=== PATIENT | female | born 1960 | race Caucasian/White ===

== ENCOUNTER 2020-05-05 12:01 | Emergency (ER) | payer OTHER, SELFPAY ==
[2020-05-05 12:09] VITALS: BP 160/80; PULSE 65; TEMP 36.2; O2SAT 99
--- NOTE | 2020-05-05 12:09 | ED.WOUNDLAC ---
HPI - Wound/Laceration General Chief Complaint: Wound/Laceration Stated Complaint: lt hand middle finger laceration/rt hand thumb lac Time Seen by Provider: 05/05/20 12:09 Source: patient and RN notes reviewed History of Present Illness HPI narrative: Patient is a 59-year-old female who presents the urgent care with complaints of a laceration to the left middle finger and right thumb. Patient states that she was doing dishes just prior to arrival and busted a crystal sponge yee in her hand. Patient denies of any pretreatment prior to arrival. Denies of any other injuries. No other acute complaints. No acute distress noted. Patient aware of the plan of care. Some parts of this dictation were generated by voice recognition software and may contain typographical and/or grammatical inaccuracies. Related Data Home Medications Medication Instructions Recorded Confirmed metformin 05/05/20 05/05/20 Allergies Allergy/AdvReac Type Severity Reaction Status Date / Time amoxicillin Allergy Unknown rash, Verified 05/05/20 12:18 facial swelling cetirizine Allergy Unknown agitation/n Verified 05/05/20 12:18 ervousness doxycycline Allergy Unknown Hives Verified 05/05/20 12:18 ezetimibe Allergy Unknown pain Verified 05/05/20 12:18 loratadine Allergy Unknown agitation Verified 05/05/20 12:18 Sulfa (Sulfonamide Allergy Unknown Skin Verified 05/05/20 12:18 Antibiotics) Reaction Review of Systems Review of Systems: Narrative: CONSTITUTIONAL: Denies fever, chills, or sweats. EYES: Denies visual changes, redness, or discharge. ENT: Denies rhinorrhea, congestion, sore throat, or otalgia. CARDIOVASCULAR: Denies chest pain, palpitations, or edema. RESPIRATORY: Denies cough or dyspnea. GASTROINTESTINAL: Denies abdominal pain, nausea, vomiting, or diarrhea. GENITOURINARY: Denies dysuria or hematuria. SKIN: Reports of a laceration to the left middle finger and right thumb MUSCULOSKELETAL: Denies back pain, joint pain, or myalgia. NEUROLOGIC: Denies headache, numbness, or weakness. All other systems reviewed are negative, except as documented in HPI. [facility] Past Medical History Medical History (Updated 05/05/20 @ 12:27 by RUTH Tinoco) Mixed hyperlipidemia Normal colonoscopy 2014 Prediabetes Family History Family History (Updated 06/16/17 @ 10:01 by DOCTOR UNKNOWN) Father Hypertension Family history of lung cancer Mother Hypertension Family history of elevated blood lipids Grandparent Carcinoma of colon Sibling Family history of malignant neoplasm of breast Social History Social History Smoking status: Never smoker Alcohol intake: current Comments At the time of my signature, I reviewed and agree with the nursing past medical, surgical, social, and family history. There is no relevant family history pertinent to the patient complaint. Exam Narrative: Exam Narrative: GENERAL: This is a well-nourished, well-developed patient, in no apparent distress. HEAD: normocephalic, atraumatic. EYES: PERRL. Sclera clear/white. Vision is grossly intact. EARS: External ears normal NOSE: External nose normal with no obvious nasal discharge, nares without redness, no rhinorrhea. THROAT: Mucous membranes moist NECK: Neck supple SKIN: 0.25 cm superficial laceration noted to the ulnar aspect of the right thumbnail, 0.25 cm superficial laceration noted to the radial aspect of the right thumbnail; 1 cm linear superficial laceration noted to the tuft of the left middle finger NEURO: awake, alert, and oriented to person, place and time. There were no obvious focal neurologic abnormalities. EXTREMITIES: No obvious erythema, edema or ecchymosis noted to bilateral hands. Positive strong bilateral radial pulses with capillary refill less than 2 seconds. Range of motion to all phalanges within normal limits. Course Vital Signs Vital signs: Vital Signs Temperature 97.2 F L 05/05/20 12:09 Pulse Rate
== END 2020-05-05 12:31 | disposition home or self-care (01) ==
PROVIDERS: Emergency Provider Nurse Practitioner Family; PCP Family Medicine
DX: S61.213A Laceration without foreign body of left middle finger without damage to nail, initial encounter (principal); S61.011A Laceration without foreign body of right thumb without damage to nail, initial encounter; W25.XXXA Contact with sharp glass, initial encounter; Y93.G1 Activity, food preparation and clean up; E78.2 Mixed hyperlipidemia; R73.03 Prediabetes
CPT/HCPCS: 12001; 99212; G0463

== ENCOUNTER → 2020-12-24 10:46 | Outpatient (CLI) | payer OTHER, SELFPAY ==
--- NOTE | ~2020-12-24 | XR_ITS ---
XR hip BI wo pelvis DATE: 12/24/2020 11:38 INDICATION: Right hip pain TECHNIQUE: AP and lateral views of each hip COMPARISON: None FINDINGS: There is irregularity and mild flattening of the right femoral head as well as some patchy sclerosis, consistent with avascular necrosis. No recent fracture or dislocation of either hip is evident. There is no evidence of avascular necrosi s of the left hip. The pubic symphysis and sacroiliac joints are intact. Degenerative disc disease at L5-S1 IMPRESSION: Avascular necrosis of the right femoral head Reviewed, dictated and finalized at location A.
--- NOTE | ~2020-12-24 | XR_ITS ---
XR lumbar spine 2-3V DATE: 12/24/2020 11:38 INDICATION: Right hip pain TECHNIQUE: AP, lateral, coned lateral lumbosacral views COMPARISON: None FINDINGS: There is diffuse osteopenia. No fracture or bone destruction. The included lower thoracic and lumbar pedicles are intact. There is moderate loss of interspace height and minimal spurring at L3-4. There is more prominent loss of interspace height at L5-S1. The sacroiliac joints are intact. IMPRESSION: Degenerative disc disease at L3-4 and to a greater extent L5-S1 Diffuse osteopenia Reviewed, dictated and finalized at location A.
== END ==
PROVIDERS: PCP Family Medicine
DX: M25.551 Pain in right hip (principal); M85.88 Other specified disorders of bone density and structure, other site; M51.36 Other intervertebral disc degeneration, lumbar region; M87.851 Other osteonecrosis, right femur
CPT/HCPCS: 72100; 73521

== ENCOUNTER → 2021-01-22 12:11 | Outpatient (CLI) | payer OTHER, SELFPAY ==
--- NOTE | ~2021-01-22 | MR_ITS ---
EXAMINATION: MR hip RT wo con DATE: 01/22/2021 14:58 INDICATION: Right hip pain. TECHNIQUE: Magnetic resonance imaging (MRI) of the right hip was performed without intravenous contra st. Sequences included axial and coronal PD-weighted FS FSE and axial T1-weighted FSE of the pelvis. Sequences of the hip included 2D FIESTA, T1-weighted fast GRE, and axial, coronal, and sagittal PD-we ighted FS FSE. COMPARISON: Pelvis and hip radiographs 12/24/2020 FINDINGS: Bones/cartilage: Bone alignment is normal. There is a large distribution of osteonecrosis of the femoral heads bilater ally. There is collapse of the articular surface of right femoral head. Right hip joint demonstrates small osteophytes and partial thickness cartilage loss. Labrum: There is a tear of right acetabular labrum. Fluid: There is a large right hip joint effusion. There is mild bilateral trochanteric bursitis. Soft tissues: There is moderate tendinopathy of the hamstring origins. The iliopsoas tendons are normal. The gluteu s minimus and gluteus medius tendons are normal. IMPRESSION: 1. Large distribution of osteonecrosis of right femoral head with collapse of the articular surface a nd mild right hip osteoarthritis. 2. Large right hip joint effusion. 3. Large distribution of osteonecrosis in left femoral head. Reviewed, dictated and finalized at location A. IMPRESSION: 1. Large distribution of osteonecrosis of right femoral head with collapse of t he articular surface and mild right hip osteoarthritis. 2. Large right hip joint effusion. 3. Large distribution of osteonecrosis in left femoral head.
== END ==
PROVIDERS: PCP Family Medicine; Visit Provider Orthopaedic Surgery
DX: M25.451 Effusion, right hip (principal); M87.850 Other osteonecrosis, pelvis
CPT/HCPCS: 73721

== ENCOUNTER 2021-05-20 01:16 | Day surgery (SDC) | payer OTHER, SELFPAY ==
[2021-05-07 14:28] VITALS: BMI 29.6
--- NOTE | 2021-05-19 15:10 | PM.HPGS ---
History of Present Illness History of Present Illness Consent: Risks, benefits, and alternatives have been discussed and questions answered. Patient agrees to proceed with procedure. Chief complaint: hx of colon polyps, neoplasm screening Narrative: Michelle Zhao is a 60 year old female referred for colon cancer screening. She had a polyp removed about Review of Systems Review of Systems: All systems reviewed & are unremarkable except as noted in HPI and below PMFSH Past Medical History Medical History Mixed hyperlipidemia Normal colonoscopy 2015 Prediabetes Family History Family History Father Hypertension Family history of lung cancer Mother Hypertension Family history of elevated blood lipids Grandparent Carcinoma of colon Sibling Family history of malignant neoplasm of breast Social History Social History Smoking status: Former smoker Second hand tobacco smoke exposure: No Alcohol intake: current Drinks per week: 6 Substance use: never Substance use type: does not use Living arrangements: with family Additional occupation/education comments: HM Gender identity (if verbalized by the patient): Female Spiritual care concerns: No Agree to blood products: Yes Meds Home Medications and Allergies Home Medications Medication Instructions Recorded Confirmed Type aspirin 81 mg tablet,delayed 81 mg PO DAILY 01/20/21 05/20/21 History release lisinopril 20 mg tablet 20 mg PO DAILY #90 tablet 01/20/21 05/20/21 Rx metoprolol succinate 100 mg See Rx Instructions .ROUTE 01/20/21 05/20/21 Rx tablet,extended release 24 hr .COMPLEX #90 tablet sitagliptin 100 mg-metformin ER 1 tablet PO DAILY #90 tablet 01/20/21 05/20/21 Rx 1,000 mg tablet,extended [id number] mp spironolactone 50 mg tablet See Rx Instructions .ROUTE 01/20/21 05/20/21 Rx .COMPLEX #90 tablet venlafaxine 75 mg capsule,extended See Rx Instructions .ROUTE 01/20/21 05/20/21 Rx release 24 hr .COMPLEX #90 cap atorvastatin 80 mg tablet 80 mg PO DAILY #90 tablet 02/11/21 05/20/21 Rx alprazolam 0.25 mg tablet 0.25 mg PO .qd PRN 90 Days #90 02/12/21 05/20/21 Rx tablet Allergies Allergy/AdvReac Type Severity Reaction Status Date / Time amoxicillin Allergy Unknown rash, Verified 05/20/21 06:53 facial swelling cetirizine Allergy Unknown agitation/n Verified 05/20/21 06:53 ervousness doxycycline Allergy Unknown Hives Verified 05/20/21 06:53 ezetimibe Allergy Unknown pain Verified 05/20/21 06:53 loratadine Allergy Unknown agitation Verified 05/20/21 06:53 Sulfa (Sulfonamide Allergy Unknown Skin Verified 05/20/21 06:53 Antibiotics) Reaction Exam Resp: Auscultation: clear to auscultation bilaterally Cardio: Rate: regular rate Rhythm: regular rhythm GI: GI Palp: Yes Soft to palpation and No Tenderness to palpation present (GI) Assessment and Plan Assessment and plan (1) Colon cancer screening: Code(s): Z12.11 - Encounter for screening for malignant neoplasm of colon Status: Acute Assessment and Plan: Colonoscopy with possible biopsy or polypectomy or cautery or injection of substances.
[2021-05-20 06:53] LABS: Glucose Point of Care 104 mg/dl (65-105)
[2021-05-20 06:56] VITALS: BP 158/92; PULSE 90; RESP 17; TEMP 36.6; O2SAT 98
[2021-05-20] MEDS: LACTATED RINGERS 1,000 ML 150 ML IV CONT (07:08)
--- NOTE | 2021-05-20 07:44 | WPDANESEPPF ---
Anes - Initial Pre Proc Eval Procedure: Operation Date: 05/20/21 08:00 Proposed Procedures p Screening Colonoscopy - Pratik Hannah MD Date/Time: 05/20/21 07:44 Surgeon: Pratik Hannah MD Pre Op Diagnosis: hx of colon polyps, neoplasm screening Patient Data Age: 60 Gender: F Height: 1.73 m Weight: 89.7 kg Last Vital Signs Temp 98 F 05/20/21 06:56 Pulse 90 05/20/21 06:56 Resp 17 05/20/21 06:56 BP 158/92 H 05/20/21 06:56 Pulse Ox 98 05/20/21 06:56 Allergies Allergy/AdvReac Type Severity Reaction Status Date / Time amoxicillin Allergy Unknown rash, Verified 05/20/21 06:53 facial swelling cetirizine Allergy Unknown agitation/n Verified 05/20/21 06:53 ervousness doxycycline Allergy Unknown Hives Verified 05/20/21 06:53 ezetimibe Allergy Unknown pain Verified 05/20/21 06:53 loratadine Allergy Unknown agitation Verified 05/20/21 06:53 Sulfa (Sulfonamide Allergy Unknown Skin Verified 05/20/21 06:53 Antibiotics) Reaction Home Medications Medication Instructions Recorded Confirmed Type aspirin 81 mg tablet,delayed 81 mg PO DAILY 01/20/21 05/20/21 History release lisinopril 20 mg tablet 20 mg PO DAILY #90 tablet 01/20/21 05/20/21 Rx metoprolol succinate 100 mg See Rx Instructions .ROUTE 01/20/21 05/20/21 Rx tablet,extended release 24 hr .COMPLEX #90 tablet sitagliptin 100 mg-metformin ER 1 tablet PO DAILY #90 tablet 01/20/21 05/20/21 Rx 1,000 mg tablet,extended [id number] mp spironolactone 50 mg tablet See Rx Instructions .ROUTE 01/20/21 05/20/21 Rx .COMPLEX #90 tablet venlafaxine 75 mg capsule,extended See Rx Instructions .ROUTE 01/20/21 05/20/21 Rx release 24 hr .COMPLEX #90 cap atorvastatin 80 mg tablet 80 mg PO DAILY #90 tablet 02/11/21 05/20/21 Rx alprazolam 0.25 mg tablet 0.25 mg PO .qd PRN 90 Days #90 02/12/21 05/20/21 Rx tablet Laboratory Tests 05/20/21 06:50 POC Capillary Glucose 104 mg/dl mg/dl (65-105) Patient hx anesthesia problems: none Family hx anesthesia problems: none Results Review: All pre-operative results and documents have been reviewed as part of the pre-operative evaluation. [facility] Past Medical History Medical History Mixed hyperlipidemia Normal colonoscopy 2014 Prediabetes Family History Family History Father Hypertension Family history of lung cancer Mother Hypertension Family history of elevated blood lipids Grandparent Carcinoma of colon Sibling Family history of malignant neoplasm of breast Social History Social History Smoking status: Former smoker Second hand tobacco smoke exposure: No Alcohol intake: current Drinks per week: 6 Substance use: never Substance use type: does not use Living arrangements: with family Additional occupation/education comments: HM Gender identity (if verbalized by the patient): Female Spiritual care concerns: No Agree to blood products: Yes Anes - Eval Final PreProcedure Day of Procedure 05/20/21 07:44 Patient weight: overweight Heart: regular rate and rhythm Lungs: clear to auscultation Airway: Mallampati scale class II Neurological: alert and oriented Last oral intake: >/= 8 hours ASA classification: II Emergent: no Anesthetic plan: proceed Anesthesia type and monitoring: general GIVS and standard monitoring Results Review: All pre-operative results and documents have been reviewed as part of the pre-operative evaluation. Informed Consent: The patient's anesthetic plan and its attendant risks and benefits were discussed with the patient/family/POA. Questions were solicited and answers provided to the satisfaction of the patient/family/POA.
[2021-05-20 08:20] VITALS: BP 124/72; PULSE 78; RESP 19; O2SAT 100
[2021-05-20 08:30] VITALS: BP 144/89; PULSE 71; RESP 19; O2SAT 99
[2021-05-20 08:40] VITALS: BP 134/89; PULSE 72; RESP 15; O2SAT 100
== END 2021-05-20 08:45 | disposition home or self-care (01) ==
PROVIDERS: PCP Family Medicine; Visit Provider Internal Medicine Gastroenterology
PROC: 0DJD8ZZ Inspection of Lower Intestinal Tract, Via Natural or Artificial Opening Endoscopic (ICD-10-PCS; CPT 45378; principal; 2021-05-20 08:00)
DX: Z12.11 Encounter for screening for malignant neoplasm of colon (principal); D12.8 Benign neoplasm of rectum; D12.3 Benign neoplasm of transverse colon; D12.2 Benign neoplasm of ascending colon; K57.30 Diverticulosis of large intestine without perforation or abscess without bleeding; E78.2 Mixed hyperlipidemia; R73.03 Prediabetes; Z79.82 Long term (current) use of aspirin; Z79.84 Long term (current) use of oral hypoglycemic drugs; Z87.891 Personal history of nicotine dependence
CPT/HCPCS: 45385; 82948; 88305; J2704; J3370; J7120

== ENCOUNTER 2024-11-02 07:15 | Outpatient (CLI) | payer MEDICARE, OTHER, SELFPAY ==
--- NOTE | ~2024-11-02 | US_ITS ---
US abdomen limited INDICATION: Cirrhosis. PROCEDURE: Realtime right upper abdominal ultrasound. COMPARISON: No prior studies for comparison. FINDINGS: The pancreas is normal without focal mass or pancreatic ductal dilation. Liver echotexture is increased and heterogeneous with nodular liver surface, compatible with cirrhosis. There is norm al directional flow in the portal vein. The gallbladder is normal without stones, gallbladder wall thickening or pericholecystic fluid. Comm on bile duct measures 4 mm. No sonographic Mancuso's sign. IMPRESSION: 1: Cirrhosis of the liver. Reviewed, dictated and finalized at location B. IMPRESSION: 1: Cirrhosis of the liver.
--- OUTSIDE RECORDS SUMMARY | 2024-11-02 07:19 | XMS_ITS | Patient Health Record ---
Author Organization Inc. Kevin Address [address] [place] [address] [address] [place], [place] [id number] Care Team Providers Care Process Server Name Role Phone SCOTT SANTOS MD Primary Care Provider Unav ailable Dipika Perez Unavailable [phone] Allergies Allergen (clinical drug ingredient) Drug/Non Drug Allergy documented on EMR Reaction Allergy Type Onset Date Status sulfamethoxazole / trimethoprim Bactrim Unknown Drug Allergy Active Results Component Value Reference Range Notes HEPATITIS C AB W/REFL TO HCV RNA, QN, PCR Reviewed date:02/13/2024 12:35:33 PM Interpretation:03/04 hep and tb screen Negative Performing Lab:[place], [facility]-[id number] Salima Peres, [id number] Kiki Brantley MD Notes/Report: FASTING:NO FASTING: NO HEPATITIS C ANTIBODY NON-REACTIVE NON-REACTIVE HCV antibody was non-reactive. There is no laboratory evidence of HCV infection. In most cases, no further action is required. However, if recent HCV exposure is suspected, a test for HCV RNA (test code 20418) is suggested. For additional information please refer to http://education.RemCare.com/faq/ZKW18d3 (This link is being provided for informational/ educational purposes only.) HEPATITIS B SURFACE AG,QN BEATRICE ZHAO (NOT FOR DIAG) Reviewed date:02/13/2024 12:35:33 PM Interpretation: Negative Performing Lab:[place], [facility] [place],[address] [facility] [id number] Yolanda Perez MD,PhD,SABINO Notes/Report: FASTING:NO FASTING: NO HEPATITIS B SURFACE AG,QN MONITOR (NOT FOR DIAG) <0.05 REFERENCE RANGE: <0.05 IU/mL The HBsAg Quantitative test should not be used to diagnose HBV infection. For HBV diagnosis, test code 498(X) Hepatitis B Surface Antigen with Reflex Confirmation and test code 501(X) Hepatitis B Core Antibody, Total are recommended. Quantitative HBsAg should be used to confirm ongoing hepatitis B virus (HBV) replication, evaluate prognosis in selected patients, and monitor response to antiviral treatment. For additional information, please refer to http://Threat Stack.Spinelab/faq/APY013 (This link is being provided for informational/ educational purposes only.) QUANTIFERON(R)-TB GOLD PLUS, 1 TUBE Reviewed date:02/13/2024 12:35:33 PM Interpretation: Negative Performing Lab:[place], [id number] Salima Louie, [id number] Kiki Brantley MD Notes/Report: FASTING:NO FASTING: NO QUANTIFERON(R)-TB GOLD PLUS, 1 TUBE NEGATIVE NEGATIVE Negative test result. M. tuberculosis complex infection unlikely. NIL 0.15 MITOGEN-NIL 7.79 TB1-NIL 0.05 TB2-NIL 0.09 The Nil tube value reflects the background interferon gamma immune response of the patient's blood sample. This value has been subtracted from the patient's displayed TB and Mitogen results. Lower than expected results with the Mitogen tube prevent false-negative Quantiferon readings by detecting a patient with a potential immune suppressive condition and/or suboptimal pre-analytical specimen handling. The TB1 Antigen tube is coated with the M. tuberculosis-specific antigens designed to elicit responses from TB antigen primed CD4+ helper T-lymphocytes. The TB2 Antigen tube is coated with the M. tuberculosis-specific antigens designed to elicit responses from TB antigen primed CD4+ helper and CD8+ cytotoxic T-lymphocytes. For additional information, please refer to https://education.Self-A-r-T/faq/KSY750 (This link is being provided for informational/ educational purposes only.) Reason For Referral No Information Medications Medication SIG (Take, Route, Frequency, Duration) Notes Start Date End Date Status Hydrocortisone 2.5 % 1 application Externally Twice a day for 30 days 05/25/2021 Not-Taking Triamcinolone Acetonide 0.1 % 1 application to trunk/ext Externally Twice a day for 30 days 10/20/2021 Not-Ceci ng Ldyrvinniei Pen 150 MG/ML as directed Subcutaneous inj 150mg q 12 weeks for 90 days 12/07/2021 Not-Takin g Taltz 80 MG/ML as directed Subcutaneous inj 80mg q 4 weeks for 30 days pt has new ins will fax Active Taltz 80 MG/ML as directed Subcutaneous inj 80 mg q 4 weeks for 30 days 04/19/2024 Active Venlafaxine HCl ER 75 MG (Prior Auth: Rx Ref#:[id number]) Oral for 90 Active Cimzia (2 Syringe) 200 MG/ML INJECT THE CONTENTS OF 2 SYRINGES (400 MG) UNDER THE SKIN EVERY OTHER WEEK DIRECTED Not-Nicki g Immunizations Vaccine Route Administration Date Status Comme nts Influenza, unspecified formu lation (CPT 63521 Inactive) Unknown 03/18/2020 Administered Influenza, unspecified formu lation (CPT 16225 Inactive) Unknown 01/14/2021 Administered Influenza, unspecified formu lation (CPT 65954 Inactive) Unknown 06/15/2017 Refused Pneumococcal polysaccharide PPV23 Unknown 06/15/2017 Re fused Pneumococcal polysaccharide PPV23 Unknown 04/29/2021 Re fused Influenza, unspecified formu lation (CPT 10251 Inactive) Unknown 05/10/2022 Refused Pneumococcal polysaccharide PPV23 Unknown 05/10/2022 Re fused Influenza, unspecified formu lation (CPT 33768 Inactive) Unknown 05/19/2023 Refused Pneumococcal polysaccharide PPV23 Unknown 05/19/2023 Re fused Influenza, unspecified formu lation (CPT 15417 Inactive) Unknown 04/19/2024 Refused Social History Tobacco Use: Social History Observation Description Date Details (start date - stop date) Never Smoker NA - NA Tobacco Use/Smoking Question Answer Notes Are you a nonsmoker Problems Problem Type SNOMED Code ICD Code Onset Dates Problem Status W/U Status Risk Notes Problem Prurigo nodularis (25678914) Prurigo nodularis (L28.1) Active confirmed My hope is that the patient's prurigo nodules will clear once the patient psoriasis is again under control with Toltz Problem Psoriasis vulgaris (558570605) Psoriasis vulgaris (L40.0) Active confirmed Patient beginning to improve on Toltz, will continue. Problem Actinic keratosis () Actinic keratosis (L57.0) Active confirmed Lesions were treated with cryotherapy for 15 seconds a piece today in my office as per procedure note.. Patient was warned of the side effects including large blisters, pain, scarring, secondary infection and recurrence. Patient was instructed to bathe normally and treat with topical antibiotics and a bandage once the blisters unroof and the sites are healed. Written instructions were given. Problem 585105738 Other long term care pharmacist (current) drug therapy (Z79.899) Active confirmed Problem Multiple benign melanocytic nevi (124415225) Multiple nevi (D22.9) Active confirmed Benign appearin g nevi were noted on head, neck, trunk or extremities. Patient education was provided including the ABCDs of melanoma and identification of nonmelanoma skin cancers as well as the importance of sun protection and sunscreen application Encounters Encounter Location Date Provider Diagnosis [facility] Karina Forrest [address] [id number] 01/25/2024 Dipika Perez Psoriasis vulgaris L40.0 ; skilled nursing use of drug Z79.899 and Prurigo nodularis L28.1 [facility] Karina Forrest [address] [id number] 04/19/2024 Dipika Perez Psoriasis vulgaris L40.0 and Multiple nevi D22.9 [facility] [address] [id number] 02/13/2024 Inc. Leann [address] [id number] 05/07/2024 Dipika Perez Psoriasis vulgaris L40.0 [facility] [address] [id number] 10/09/2024 Dipika Perez Psoriasis vulgaris L40.0 [facility] [address] [id number] 02/08/2024 Inc. Criss [address] [id number] 02/14/2024 SCOTT Perez, Inc. [address] [place] [id number] 02/14/2024 SCOTT Perez, Inc. [address] [place] [id number] 02/23/2024 SCOTT Perez, Inc. [address] Karina Forrest [address] [place] [address] [id number] 02/24/2024 SCOTT Perez, Inc. [address] [place] [address] [id number] 02/24/2024 Dipika Perez, Inc. [address] Karina Forrest [address] [place] [address] [id number] 02/27/2024 SCOTT Perez, Inc. [address] Karina Forrest [address] [place] [address] [id number] 03/11/2024 SCOTT Perez, Inc. [address] [place] [address] [id number] 03/27/2024 SCOTT Perez, Inc. [address] [place] [address] [id number] 03/28/2024 SCOTT Perez, Inc. [address] [place] [address] [id number] 03/29/2024 SCOTT Perez, Inc. [address] [place] [address] [id number] 04/30/2024 SCOTT Perez, Inc. [address] [place] [address] [id number] 05/05/2024 SCOTT Perez, Inc. [address] [place] [id number] 05/07/2024 SCOTT SANTOS Psoriasis vulgaris L40.0 Dipika Perez, Inc. [address] [place] [address] [id number] 05/10/2024 SCOTT Perez, Inc. [address] [place] [id number] 05/22/2024 SCOTT Perez, Inc. [address] [address] [place], [place] [id number] 08/15/2024 Inc. Criss [address] Kar[address] [place], [place] [id number] 08/31/2024 Inc. Criss [address] [address]ina [address] [place], [place] [phone] 10/09/2024 SCOTT SANTOS Assessments Encounter Date Diagnosis (ICD Code) Assessment Notes Treatment Notes Treatment Clinical Notes Section Notes 01/25/2024 Psoriasis vulgaris (ICD-10 - L40.0) Patient will repeat hepatitis and TB screen and switch back to Tolt on which her skin was previously clear. 01/25/2024 long term care pharmacist use of drug (ICD-10 - Z79.899) 04/19/2024 Psoriasis vulgaris (ICD-10 - L40.0) Patient beginning to improve on Toltz, will continue. 04/19/2024 Multiple nevi (ICD-10 - D22.9) Benign appearing nevi were noted on head, neck, trunk or extremities. Patient education was provided including the ABCDs of melanoma and identification of nonmelanoma skin cancers as well as the importance of sun protection and sunscreen application 05/07/2024 Psoriasis vulgaris (ICD-10 - L40.0) Patient beginning to improve on Toltz, will continue. 10/09/2024 Psoriasis vulgaris (ICD-10 - L40.0) Patient beginning to improve on Toltz, will continue. 05/07/2024 Psoriasis vulgaris (ICD-10 - L40.0) Patient beginning to improve on Toltz, will continue. 01/25/2024 Prurigo nodularis (ICD-10 - L28.1) My hope is that the patient's prurigo nodules will clear once the patient psoriasis is again under control with Toltz 01/25/2024 Other Learning About Sun Damage and Your Skin material was published 04/19/2024 Other Learning About Sun Damage and Your Skin material was published Plan Of Treatment Pending Test Test Name Order Date Hepatitis BsAg 04/09/2019 Hepatitis BsAg 04/29/2021 Hepatitis BsAg 06/15/2017 Hepatitis BsAg 01/25/2024 Hepatitis BsAg 04/24/2020 Hepatitis BsAg 05/19/2023 Hepatitis BsAg 05/10/2022 Hepatitis BsAg 11/17/2022 Hepatitis BsAg 10/20/2021 Hepatitis BsAg 11/08/2018 Hepatitis C antibody 04/29/2021 Hepatitis C antibody 06/15/2017 Hepatitis C antibody 01/25/2024 Hepatitis C antibody 04/24/2020 Hepatitis C antibody 05/19/2023 Hepatitis C antibody 05/10/2022 Hepatitis C antibody 11/17/2022 Hepatitis C antibody 10/20/2021 Hepatitis C antibody 11/08/2018 Hepatitis C antibody 04/09/2019 Quantiferon gold 01/25/2024 Quantiferon gold 04/24/2020 Quantiferon gold 05/19/2023 Quantiferon gold 05/10/2022 Quantiferon gold 11/17/2022 Quantiferon gold 10/20/2021 Quantiferon gold 04/09/2019 Quantiferon gold 04/29/2021 Quantiferon gold 06/15/2017 QUANTIFERON(R)-TB GOLD 11/08/2018 Skin, Shave Biopsy 05/10/2022 Insurance Providers Payer Name Payer Address Payer Phone Subscriber Number Group Number Insured Name Patient Relationship to Insured Coverage Start Date Coverage End Date [facility] [address] [place] [address] [id number] MARTIN WILCOX Self - patient is the insured Medical (General) History Medical History History ICD Code High Cholesterol
--- OUTSIDE RECORDS SUMMARY | 2024-11-02 07:20 | XMS_ITS | Referral Summary ---
Author Organization [facility] Address [address] [place] [id number] Care Team Providers Care Air Brush Artist Name Role Phone France Allan MD Primary Care Provider + Encounters Date Type Department Care Team Description 09/12/2024 Telephone [facility] ([facility]) [address] [place] [id number] Linda Partida RN Test Results (Right breast biopsy 09/11/24) 09/11/2024 2:05 PM CDT - 09/11/2024 11:59 PM CDT Hospital Encounter [facility] ([facility]) [address] [place] [id number] Abnormal mammogram Discharge Disposition: Discharge to home or self care 09/11/2024 12:47 PM CDT - 09/11/2024 11:59 PM CDT Hospital Encounter [facility] ([facility]) [address] [place] [id number] Abnormal mammogram Discharge Disposition: Discharge to home or self care 08/27/2024 7:46 AM CDT - 08/27/2024 11:59 PM CDT Hospital Encounter [facility] ([facility]) [address] [place] [id number] Abnormal mammogram Discharge Disposition: Discharge to home or self care 08/22/[address] [phone] Referral, Self Appointment Request 08/20/2024 1:19 PM CDT - 08/20/2024 11:59 PM CDT Hospital Encounter [facility] ([facility]) [address] [place] [address] Screening mammogram, encounter for Discharge Disposition: Discharge to home or self care from Last 3 Months Allergies Active Allergy Reactions Criticality Noted Date Comments Amoxicillin Unknown 02/15/2013 Sulfa (Sulfonamide Antibiotics) Rash Medium 07/2020 Medications ALPRAZolam (XANAX) 0.25 mg tablet Take 0.25 mg by mouth daily as needed 1 9 Active atorvastatin (LIPITOR) 40 mg tablet 9 Active busPIRone (BUSPAR) 5 mg tablet TAKE 1-3 TABLETS BY ORAL ROUTE UP TO 3 TIMES EVERY DAY 1 9 Active cholecalciferol (cholecalciferol) 400 unit capsule Take by mouth Active RESTASIS 0.05 % ophthalmic emulsion 9 Active TALTZ AUTOINJECTOR 80 mg/mL auto-injector 9 Active JENTADUETO XR 5-1,000 mg tablet, IR & ER, biphasic 24hr 9 Active lisinopril (PRINIVIL,ZESTRIL ) 10 mg tablet 9 Active LOTEMAX 0.5 % drops,gel INSTILL 1 DROP(S) IN EACH EYE BY OPHTHALMIC ROUTE 2 TIME(S) PER DAY 3 9 Active metFORMIN (GLUCOPHAGE) 850 mg tablet Take by mouth Active TOPROL XL 100 mg 24 hr tablet 9 Active nuiezdsi-cbo-jmtd ous fumarate (MULTI VITAMIN) 9 mg iron/15 mL liquid Take by mouth Active spironolactone (ALDACTONE) 50 mg tablet 9 Active venlafaxine XR (EFFEXOR-XR) 75 mg 24 hr capsule TK ONE C PO QD WITH FOOD 0 9 Active Active Problems Problem Noted Date Diagnosed Date Menopause present 01/16/2015 Social History Tobacco Use Types Packs/Day Years Used Date Smoking Tobacco: Never Assessed Personal Safety Answer Date Recorded Have you ever been in or are you currently in a harmful physical or emotional relationship or is someone making you feel afraid or unsafe? 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 Gender Identity Not on file Sexual Orientation Not on file Last Filed Vital Signs Vital Sign Reading Time Taken Comments Blood Pressure 112/64 08/02/2024 3:00 PM CDT Pulse 54 08/02/2024 3:00 PM CDT Temperature 36.3 C (97.4 F) 08/02/2024 11:44 AM CDT Respiratory Rate 14 08/02/2024 3:00 PM CDT Oxygen Saturation 96% 08/02/2024 3:00 PM CDT Inhaled Oxygen Concentration - - Weight 93 kg (205 lb) 08/02/2024 11:44 AM CDT Height 172.7 cm (5' 8) 08/02/2024 11:44 AM CDT Body Mass Index 31.17 08/02/2024 11:44 AM CDT Plan of Treatment Not on file Medical Devices Implanted Type Area Senior Clinical Research Scientist Device Identifier Shelf Expiration Date Model / Serial / Lot [employer] Marker Biospy Site Mini Cork Shape Deployment Device Titanium [employer]ur[employer] Eviva 13cm [id number]-[id number] - [id number] Implanted:Qty: 1 on 09/11/2024 at [facility] [employer] [id number] 03/21/2025 CommuniCliqueIV A-13 / / [id number] Procedures Procedure Name Priority Date/Time Associated Diagnosis Comments LEVAR POST CLIP PLACEMENT RIGHT Schedule Routine, Read Routine (OP Routine) 09/11/2024 2:24 PM CDT Abnormal mammogram STEREOTACTIC BREAST BIOPSY RIGHT Schedule Routine, Read Routine (OP Routine) 09/11/2024 2:05 PM CDT Abnormal mammogram SURGICAL PATHOLOGY Routine 09/11/2024 2: 04 PM CDT Abnormal mammogram DIAGNOSTIC MAMMOGRAM BILATERAL W LEVAR Schedule Routine, Read Routine (OP Routine) 08/27/2024 8:43 AM CDT Abnormal mammogram SCREENING MAMMOGRAM BILATERAL W LEVAR Schedule Routine, Read Routine (OP Routine) 08/20/2024 1:27 PM CDT Screening mammogram, encounter for from Last 3 Months Results * Levar Post Clip Placement Right (09/11/2024 2:24 PM CDT) Anatomical Region Laterality Modality Breast Right Mammography 09/11/2024 2:25 PM CDT Addenda Addendum by Thee Leal MD on 09/12/2024 2:13 PM CDT ADDENDUM: Pathology from biopsy of the Right breast showed: Breast, right, lower central, core biopsy - Calcifications associated with fibrocystic changes and benign lobules - No evidence of atypia or malignancy Please refer to pathology report for details. Pathology is benign and concordant. Normal interval screening mammography is recommended. Radiology-pathology concordance was reviewed with Dr. Krystyna Painting. Results and recommendations will be discussed with the patient by [facility] or referring provider staff and will be separately documented in the medical record. Electronically signed by: Thee Leal M.D. Impressions 09/11/2024 4:55 PM CDT 1. Successful vacuum-assisted core needle biopsy of the RIGHT breast. Pathology is pending. 2. The Cork tissue marker is displaced approximately 2 cm inferior to the expected location on post biopsy mammogram. ASSESSMENT: Post Procedure Mammograms for Marker Placement The radiology attending physician has personally reviewed this study, and had reviewed and/or edited this written report and agrees with it. Electronically signed by: Thee Leal M.D. Narrative 09/11/2024 4:55 PM CDT EXAMINATION: RIGHT STEREOTACTIC BREAST VACUUM-ASSISTED CORE BIOPSY UTILIZING TOMOSYNTHESIS AND STEREOTACTIC GUIDANCE, PLACEMENT OF A BIOPSY SITE TISSUE MARKER CLIP, AND RIGHT FULL FIELD DIGITAL MAMMOGRAM WITH DIGITAL BREAST TOMOSYNTHESIS HISTORY: Abnormal mammogram. 63-year-old woman with screening-detected grouped amorphous calcification in the lower central RIGHT breast. Image guided core needle biopsy is requested to evaluate for malignancy. COMPARISON: Prior mammograms which date back to 03/11/2016, the most recent on 08/27/2024. BREAST PARENCHYMAL COMPOSITION: There are scattered areas of fibroglandular density. PROCEDURE AND FINDINGS: The risks and potential benefits of the procedures were discussed with the patient and written informed consent was obtained. After a time-out procedure, the patient was placed in the prone position on the biopsy unit. The area of interest was localized and targeted utilizing digital imaging with tomosynthesis and stereotaxis. After sterile preparation of the skin, 1% lidocaine and 2% lidocaine with epinephrine were utilized for local anesthesia. A small skin incision was made with a #11 scalpel blade and a 9 gauge Brevera vacuum-assisted biopsy needle was advanced to the area of interest from an inferior approach utilizing stereotactic guidance. A total of 6 tissue cores were then obtained; these were submitted to surgical pathology in formalin for histologic analysis. The specimen radiograph demonstrates that the calcifications of interest are included within the tissue cores. A SecurMark Mini Cork tissue marker clip was placed at the biopsy site. The needle was removed, hemostasis was achieved, and Dermabond was applied. There was no evidence of significant immediate complication. The patient was given verbal as well as written post procedural instructions prior to release from the department. A two-view RIGHT digital mammogram with digital breast tomosynthesis post procedure demonstrates that the tissue marker clip is displaced approximately 2 cm inferior to the expected location. The attending radiologist, Dr. Thee Leal M.D., was present throughout the entire procedure. Dr. Vinod Krueger (diagnostic vice president marketing & development) also participated in this examination. us France Allan MD IMG MAMMO PROCEDURES Dameon julio cesar Result - Final * Stereotactic Breast Biopsy Right (09/11/2024 2:05 PM CDT) Anatomical Region Laterality Modality Breast Right Mammography 09/11/2024 2:15 PM CDT Addenda Addendum by Thee Leal MD on 09/12/2024 2:13 PM CDT ADDENDUM: Pathology from biopsy of the Right breast showed: Breast, right, lower central, core biopsy - Calcifications associated with fibrocystic changes and benign lobules - No evidence of atypia or malignancy Please refer to pathology report for details. Pathology is benign and concordant. Normal interval screening mammography is recommended. Radiology-pathology concordance was reviewed with Dr. Krystyna Painting. Results and recommendations will be discussed with the patient by [facility] or referring provider staff and will be separately documented in the medical record. Electronically signed by: Thee Leal M.D. Impressions 09/11/2024 4:55 PM CDT 1. Successful vacuum-assisted core needle biopsy of the RIGHT breast. Pathology is pending. 2. The Cork tissue marker is displaced approximately 2 cm inferior to the expected location on post biopsy mammogram. ASSESSMENT: Post Procedure Mammograms for Marker Placement The radiology attending physician has personally reviewed this study, and had reviewed and/or edited this written report and agrees with it. Electronically signed by: Thee Leal M.D. Narrative 09/11/2024 4:55 PM CDT EXAMINATION: RIGHT STEREOTACTIC BREAST VACUUM-ASSISTED CORE BIOPSY UTILIZING TOMOSYNTHESIS AND STEREOTACTIC GUIDANCE, PLACEMENT OF A BIOPSY SITE TISSUE MARKER CLIP, AND RIGHT FULL FIELD DIGITAL MAMMOGRAM WITH DIGITAL BREAST TOMOSYNTHESIS HISTORY: Abnormal mammogram. 63-year-old woman with screening-detected grouped amorphous calcification in the lower central RIGHT breast. Image guided core needle biopsy is requested to evaluate for malignancy. COMPARISON: Prior mammograms which date back to 03/11/2016, the most recent on 08/27/2024. BREAST PARENCHYMAL COMPOSITION: There are scattered areas of fibroglandular density. PROCEDURE AND FINDINGS: The risks and potential benefits of the procedures were discussed with the patient and written informed consent was obtained. After a time-out procedure, the patient was placed in the prone position on the biopsy unit. The area of interest was localized and targeted utilizing digital imaging with tomosynthesis and stereotaxis. After sterile preparation of the skin, 1% lidocaine and 2% lidocaine with epinephrine were utilized for local anesthesia. A small skin incision was made with a #11 scalpel blade and a 9 gauge Brevera vacuum-assisted biopsy needle was advanced to the area of interest from an inferior approach utilizing stereotactic guidance. A total of 6 tissue cores were then obtained; these were submitted to surgical pathology in formalin for histologic analysis. The specimen radiograph demonstrates that the calcifications of interest are included within the tissue cores. A [employer] Mini Cork tissue marker clip was placed at the biopsy site. The needle was removed, hemostasis was achieved, and Dermabond was applied. There was no evidence of significant immediate complication. The patient was given verbal as well as written post procedural instructions prior to release from the department. A two-view RIGHT digital mammogram with digital breast tomosynthesis post procedure demonstrates that the tissue marker clip is displaced approximately 2 cm inferior to the expected location. The attending radiologist, Dr. Thee Leal M.D., was present throughout the entire procedure. Dr. Vinod Krueger (diagnostic vice president marketing & development) also participated in this examination. us France Allan MD IM MAMMO PROCEDURES Dameon julio cesar Result - Final * Surgical pathology (09/11/2024 2:04 PM CDT) Tissue (Breast biopsy, needle core) 09/11/2024 2:04 PM CDT Comment:RIGHT Stereo Guided Breast Biopsy - Lower Central - Calcs - CAT 4A Narrative PATHOLOGY [facility] - 09/12/2024 12:02 PM CDT EPIC results best viewed via link to PDF [facility] [place] [address] Note to Patients: This report may contain a detailed description of human tissue sent by a health care provider to the laboratory for pathologic evaluation. The content of this report is essential for diagnosis and may provide important critical findings. This information may be unfamiliar to patients to review without a medical professional present. It is advised that the patient review this report in the presence of a health care provider who can answer questions and explain the details. SURGICAL PATHOLOGY REPORT FINAL Patient Name: MICHELLE WILCOX Gender: F : 1960 (Age: 63) Address: [address] [place] [phone] Hospital #: [id number] Taken:09/11/2024 Received:09/11/2024 Reported: 09/12/2024 Patient Type: [facility] Ancillary Service: UNKNOWN Location: Physician(s): France Allan M.D. Diagnosis: Breast, right, lower central, core biopsy - Calcifications associated with fibrocystic changes and benign lobules - No evidence of atypia or malignancy gugo/09/12/2024 09:35 By this signature, I attest that the above diagnosis is based upon my personal examination of the slides(and/or other material indicated in the diagnosis). Nathalie Cedillo MD Report Electronically Reviewed and Signed Out By Nathalie Cedillo MD 09/12/2024 12:02:43 Luis Fernando Foote M.D. History: The patient is a 63-year-old woman presenting for abnormal mammogram. Operative procedure: Right breast biopsy, BI-RADS 4A. Specimen(s) Received: A: Right stereo guilded breast biopsy -lower central -calcs-cat 4a Gross Description: Received in formalin, labeled with the patient s identifiers and right stereo guided breast biopsy lower central calcs BI-RADS 4A are seven yellow and white, hemorrhagic cores of fibrofatty tissue (2.4-3.0 cm each in length by 0.3-0.4 cm in diameter). The cores designated on the jar lid are labeled A1 to A2 and the remaining cores are labeled A3 to A4. Jar 0. Placed in formalin immediately after collection. Total fixation time= 6.5 hours. sxst/09/11/2024 19:10 PA(s): Shanna Mullins By this signature, I attest that the above diagnosis is based upon my personal examination of the slides(and/or other material). Addenda/Procedures The performance characteristics of some immunohistochemical stains, fluorescence in-situ hybridization tests and immunophenotyping by flow cytometry cited in this report (if any) were determined by the Surgical Pathology and Flow Cytometry Departments at [facility] as part of an ongoing type disk quality control supervisor program and in compliance with federally mandated regulations drawn from the Clinical Laboratory Improvement Act of 1988 (CLIA '88). Some of these tests rely on the use of analyte specific reagents and are subject to specific labeling requirements by the US Food and Drug Administration. Such diagnostic tests may only be performed in a facility that is certified by the Department of Health and Human Services as a high complexity laboratory under CLIA '88. The FDA has determined that such clearance or approval is not necessary. This test is used for clinical purposes. It should not be regarded as investigational or for research. Nevertheless, federal rules concerning the medical use of analyte specific reagents require that the following disclaimer be attached to the report: This test was developed and its performance characteristics determined by the Surgical Pathology and Flow Cytometry Departments of [facility]. It has not been cleared or approved by the U. S. Food and Drug Administration. IMAGES AND SCANNED DOCUMENTS, IF INCLUDED, ONLY VIEWABLE IN PDF VERSION OF REPORT us France Allan MD LAB PATHOLOGY ORDERABLES Final Result PATHOLOGY [facility] 3rd Floor [place], [place] [phone] * Diagnostic Mammogram Bilateral W Levar (08/27/2024 8:43 AM CDT) Anatomical Region Laterality Modality Breast Bilateral Mammography 08/27/2024 9:59 AM CDT Impressions 08/27/2024 11:05 AM CDT 1. Grouped amorphous calcifications in the lower central right breast at middle depth are of low suspicion for malignancy. Stereotactic biopsy is recommended. 2. Previously questioned asymmetry in the slightly outer left breast effaces with additional imaging consistent with overlapping fibroglandular tissue, stable in appearance dating back to 2019. The method of initial detection of finding was 3D screening mammography (Sdbt). OVERALL FINAL ASSESSMENT: SUSPICIOUS. BI-RADS Category 4A: Low suspicion for malignancy. RECOMMENDATION: Stereotactic biopsy of calcifications in the lower central right breast. Dr. Chaidez discussed the above findings and recommendations with the patient. She has been scheduled for biopsy on 09/11/2024 at 1:00 PM. This facility will contact the referring clinician's office for an order. Dictated by: Etelvina Chaidez M.D. The radiology attending physician has personally reviewed this study, and had reviewed and/or edited this written report and agrees with it. Electronically signed by: Claudia Frye M.D. Narrative 08/27/2024 11:05 AM CDT EXAMINATION: BILATERAL DIGITAL DIAGNOSTIC MAMMOGRAM INCLUDING CAD AND BILATERAL DIGITAL BREAST TOMOSYNTHESIS HISTORY: 63-year-old woman with screen detected calcifications in the right breast and asymmetry in the left breast presenting for additional imaging. COMPARISON: 08/20/2024 bilateral mammogram and additional prior studies dating back to 2014. TECHNIQUE: Full field digital mammographic views of BOTH breasts were performed, including computer aided detection (CAD) and BILATERAL digital breast tomosynthesis (DBT). BREAST PARENCHYMAL COMPOSITION: There are scattered areas of fibroglandular density. MAMMOGRAM FINDINGS: RIGHT: There are grouped amorphous calcifications in the lower central right breast at middle depth spanning approximately 1.0 cm. A few of the calcifications anteriorly may layer on the lateral view; however, many of the calcifications do not definitively layer. LEFT: The previously questioned asymmetry in the slightly outer left breast on the craniocaudal view effaces with additional imaging. The appearance of the left breast is stable dating back to 2019. Procedure Note Claudia Frye MD - 08/27/2024 EXAMINATION: BILATERAL DIGITAL DIAGNOSTIC MAMMOGRAM INCLUDING CAD AND BILATERAL DIGITAL BREAST TOMOSYNTHESIS HISTORY: 63-year-old woman with screen detected calcifications in the right breast and asymmetry in the left breast presenting for additional imaging. COMPARISON: 08/20/2024 bilateral mammogram and additional prior studies dating back to 2014. TECHNIQUE: Full field digital mammographic views of BOTH breasts were performed, including computer aided detection (CAD) and BILATERAL digital breast tomosynthesis (DBT). BREAST PARENCHYMAL COMPOSITION: There are scattered areas of fibroglandular density. MAMMOGRAM FINDINGS: RIGHT: There are grouped amorphous calcifications in the lower central right breast at middle depth spanning approximately 1.0 cm. A few of the calcifications anteriorly may layer on the lateral view; however, many of the calcifications do not definitively layer. LEFT: The previously questioned asymmetry in the slightly outer left breast on the craniocaudal view effaces with additional imaging. The appearance of the left breast is stable dating back to 2019. IMPRESSION: 1. Grouped amorphous calcifications in the lower central right breast at middle depth are of low suspicion for malignancy. Stereotactic biopsy is recommended. 2. Previously questioned asymmetry in the slightly outer left breast effaces with additional imaging consistent with overlapping fibroglandular tissue, stable in appearance dating back to 2019. The method of initial detection of finding was 3D screening mammography (Sdbt). OVERALL FINAL ASSESSMENT: SUSPICIOUS. BI-RADS Category 4A: Low suspicion for malignancy. RECOMMENDATION: Stereotactic biopsy of calcifications in the lower central right breast. Dr. Chaidez discussed the above findings and recommendations with the patient. She has been scheduled for biopsy on 09/11/2024 at 1:00 PM. This facility will contact the referring clinician's office for an order. Dictated by: Etelvina Chaidez M.D. The radiology attending physician has personally reviewed this study, and had reviewed and/or edited this written report and agrees with it. Electronically signed by: Claudia Frye M.D. us France Allan MD IMG MAMMO PROCEDURES Fin al Result * Screening Mammogram Bilateral W Levar (08/20/2024 1:27 PM CDT) Anatomical Region Laterality Modality Breast Bilateral Mammography Narrative 08/22/2024 11:11 AM CDT Mammogram Technique: Bilateral Digital Breast Tomosynthesis, Bilateral C-view 2D Screening mammogram. Views obtained: bilateral craniocaudal and bilateral mediolateral oblique. Computer Aided Detection was performed. Mammogram Findings: The present examination has been compared to prior imaging studies performed at [facility] on 02/08/2020, 05/18/2021, 06/17/2022 and 08/01/2023. There are scattered areas of fibroglandular density. Finding 1: There are amorphous calcifications with grouped distribution in the middle central area of the right breast. There is an increased number of calcifications. Finding 2: There is asymmetry in the middle outer breast on the craniocaudal view of the left breast. Impression: Finding 1: Calcifications in the right breast require additional evaluation. A diagnostic mammogram of the right breast is recommended at this time. Finding 2: Asymmetry in the left breast requires additional evaluation. Diagnostic mammogram and possible ultrasound of the left breast are recommended at this time. OVERALL FINAL ASSESSMENT: BI-RADS CATEGORY 0: Incomplete: Need additional imaging evaluation. Procedure Note Olya Thacker MD - 08/22/2024 Mammogram Technique: Bilateral Digital Breast Tomosynthesis, Bilateral C-view 2D Screening mammogram. Views obtained: bilateral craniocaudal and bilateral mediolateral oblique. Computer Aided Detection was performed. Mammogram Findings: The present examination has been compared to prior imaging studies performed at [facility] on 02/08/2020, 05/18/2021,06/17/2022 and 08/01/2023. There are scattered areas of fibroglandular density. Finding 1: There are amorphous calcifications with grouped distributionin the middle central area of the right breast. There is an increasednumber of calcifications. Finding 2: There is asymmetry in the middle outer breast on the craniocaudal view of the left breast. Impression: Finding 1: Calcifications in the right breast require additional evaluation. A diagnostic mammogram of the right breast is recommended at this time. Finding 2: Asymmetry in the left breast requires additional evaluation. Diagnostic mammogram and possible ultrasound of the left breast are recommended at this time. OVERALL FINAL ASSESSMENT: BI-RADS CATEGORY 0: Incomplete: Need additional imaging evaluation. us Self Screening Mammogram IMG MAMMO PROCEDURES Fi nal Result from Last 3 Months Insurance [facility]ICE [facility] Address: [facility] [address] [place] [address] [place] Direct[place] For more information, please contact: [phone] * Full Code (Latest Code Status on File) Date Activated Date Inactivated Comments 08/02/2024 11:40 AM 08/03/2024 5:06 AM Care Teams Air Brush Artist Relationship Specialty Start Date End Date France Allna MD PCP - General 04/10/17
--- OUTSIDE RECORDS SUMMARY | 2024-11-02 07:20 | XMS_ITS ---
Author Organization [facility] Address [address] [place], [place] [id number] Care Team Providers Care River Rat Name Role Phone SCOTT SANTOS MD Primary Care Provider Unav Dipika Nicholson Unavailable [phone] Allergies Allergen (clinical drug ingredient) Drug/Non Drug Allergy documented on EMR Reaction Allergy Type Onset Date Status sulfamethoxazole / trimethoprim Bactrim Unknown Drug Allergy Active REASON FOR VISIT 6 mo psoriasis- Medications Medication SIG (Take, Route, Frequency, Duration) Notes Start Date End Date Status Taltz 80 MG/ML as directed Subcutaneous inj 80 mg q 4 wks for 90 days Not-Taking Hydrocortisone 2.5 % 1 application Externally Twice a day for 30 days 05/25/2021 Not-Taking Triamcinolone Acetonide 0.1 % 1 application to trunk/ext Externally Twice a day for 30 days 10/20/2021 Not-Ceci ng Skyrizi Pen 150 MG/ML as directed Subcutaneous inj 150mg q 12 weeks for 90 days 12/07/2021 Not-Nicki barriga Venlafaxine HCl ER 75 MG (Prior Auth: Rx Ref#:[id number]) Oral for 90 Active Cimzia 2 X 200 MG/ML as directed Subcutaneous inj 400mg q o week for 30 days 12/02/2022 Active Immunizations Vaccine Route Administration Date Status Comme nts Influenza, unspecified formu lation (CPT 48950 Inactive) Unknown 05/19/2023 Refused Pneumococcal polysaccharide PPV23 Unknown 05/19/2023 Re fused Social History Tobacco Use: Social History Observation Description Date Details (start date - stop date) Never Smoker NA - NA Tobacco Use/Smoking Question Answer Notes Are you a nonsmoker Problems Problem Type SNOMED Code ICD Code Onset Dates Problem Status W/U Status Risk Notes Problem 804170703 Other long term care social worker (current) drug therapy (Z79.899) Active confirmed Problem Prurigo nodularis (17743583) Prurigo nodularis (L28.1) Active confirmed My hope is that the patient's prurigo nodules will clear once the patient psoriasis is again under control with Toltz Vital Signs Blood pressure systolic 140 mm Hg 05/19/19 24 Blood pressure diastolic 62 mm Hg 024 Encounters Encounter Location Date Provider [facility] [address] [place], [place] [id number] 05/19/2023 Dipika Perez Psoriasis vulgaris L40.0 ; Other fci (current) drug therapy Z79.899 and Prurigo nodularis L28.1 Assessments Encounter Date Diagnosis (ICD Code) Assessment Notes Treatment Notes Treatment Clinical Notes Section Notes 05/19/2023 Psoriasis vulgaris (ICD-10 - L40.0) Patient doing great on Cimzia vis-a-vis her psoriasis, however her prurigo nodularis is extraordinary. Will discontinue the Cimzia and initiate cyclosporine to get the prurigo nodules under control. Once they have resolved will reinstitute Cimzia for the psoriasis. Will have hepatitis and TB screen repeated. 05/19/2023 Other long term care social worker (current) drug therapy (ICD-10 - Z79.899) 05/19/2023 Prurigo nodularis (ICD-10 - L28.1) Will treat with cyclosporine 300 mg p.o. nightly. Patient was warned of the side effects of this medication. We will get her blood work from her primary care physician prior to initiating the medication and she will follow-up 2 months after she initiates the medicine. She understands to discontinue the manipulation of the lesions. 05/19/2023 Other Learning About Sun Damage and Your Skin material was published Plan Of Treatment Treatment Notes Assessment Notes Other Learning About Sun D amage and Your Skin material was published Pending Test Test Name Order Date Hepatitis BsAg 05/19/2023 Hepatitis C antibody 05/19/2023 Quantiferon gold 05/19/2023 Next Appt Details Follow Up: prn, Reason: Progress Notes * MARTIN WILCOX [birth year]OB:[birth year] (64 yo F)Acc No.[id number]:05/19/2023 Progress Notes Patient: MARTIN GRAHAM Provider: Maru Perez M.D :1960 A ge:62 Y S ex:Female Date:05/19/2023 Address:[address] [place], [place] [id number] Pcp:SCOTT SANTOS MD Subjective: * Chief Complaints: * 1 . 6 mo psoriasis-. * HPI: H PI: This is a follow-up office visit for this 62-year-old white female with a history of psoriasis. She is well-controlled on Cimzia, however she is has remained plagued with nodules down the right buttock and right posterior leg. * ROS: A complete medical history, family history, social history and review of systems were completed by the patient on the patient history form and salient issues reviewed with the patient during this visit. The patient history form can be found in the electronic medical record as a scanned document. * Medical History: H igh Cholesterol. * Family History: Patient has no known family history of skin cancer. * Social History: T obacco Use: T obacco Use/Smoking A re you a n onsmoker * Medications: T aking Venlafaxine HCl ER 75 MG Capsule Extended Release 24 Hour (Prior Auth: Rx Ref#:[id number]) Oral , Taking Cimzia 2 X 200 MG/ML Prefilled Syringe Kit as directed Subcutaneous inj 400mg q o week , Not-Taking Hydrocortisone 2.5 % Cream 1 application Externally Twice a day , Not-Taking Triamcinolone Acetonide 0.1 % Cream 1 application to trunk/ext Externally Twice a day , Not-Taking Skyrizi Pen 150 MG/ML Solution Auto-injector as directed Subcutaneous inj 150mg q 12 weeks , Not- Taking Taltz 80 MG/ML Solution Auto-injector as directed Subcutaneous inj 80 mg q 4 wks , Medication List reviewed and reconciled with the patient * Allergies: B actrim. Objective: * Vitals: B P:140/62mm Hg. * Examination: D ermatology: Kodak garcia has no evidence of psoriasis at this time, however she has tremendous number of large excoriated nodules on her right buttock and right posterior leg. Assessment: * Assessment: 1. P soriasis vulgaris - L40.0 (Primary) S pecify :0% body surface area on Cimzia N otes :Patient doing great on Cimzia vis-a-vis her psoriasis, however her prurigo nodularis is extraordinary. Will discontinue the Cimzia and initiate cyclosporine to get the prurigo nodules under control. Once they have resolved will reinstitute Cimzia for the psoriasis. Will have hepatitis and TB screen repeated. 2 . O ther long term care social worker (current) drug therapy - Z79.899 3 . P rurigo nodularis - L28.1 S pecify :Extraordinarily severe on the right posterior buttock and posterior leg N otes :Will treat with cyclosporine 300 mg p.o. nightly. Patient was warned of the side effects of this medication. We will get her blood work from her primary care physician prior to initiating the medication and she will follow-up 2 months after she initiates the medicine. She understands to discontinue the manipulation of the lesions. Plan: * Treatment: 2. O thers Notes: Learning About Sun Damage and Your Skin material was published * Immunizations: Influenza, unspecified formulation (CPT 62310 Inactive) (Not administered - Refused: Patient decision) Pneumococcal polysaccharide PPV23 (Not administered - Refused: Patient decision) ???Immunization record has been reviewed and updated. * Follow Up: p rn * * Electronic signature of Moreno Perez MD on 11/02/2024 at 07:19 AM CDT Sign off status: Pending * Provider: Maru Perez M.D Date: 0 05/19/2023 Generated for Manda jim/Benoit/Daviditting on: 0 11/02/2024 07:19 AM CDT History and Physical Notes * Examination Category Sub-Category Detail Notes Category Not es Dermatology Patient has no evidence of psoriasis at this time, however she has tremendous number of large excoriated nodules on her right buttock and right posterior leg
--- OUTSIDE RECORDS SUMMARY | 2024-11-02 07:20 | XMS_ITS | Clinical Summary ---
Author Organization [facility] Address [address] [place] [address] Care Team Providers Care Hotel Front Desk Agent Name Role Phone France Allan MD Primary Care Provider + Allergies Active Allergy Reactions Criticality Noted Date [...] 100 mg 24 hr tablet 9 Active xnshicsf-msk-tips ous fumarate (MULTI VITAMIN) 9 mg iron/15 mL liquid Take by mouth Active spironolactone (ALDACTONE) 50 mg tablet 9 Active venlafaxine XR (EFFEXOR-XR) 75 mg 24 hr capsule TK ONE C PO QD WITH FOOD 0 9 Active Active Problems Problem Noted Date Diagnosed Date Menopause present 01/16/2015 Encounters Date Type Department Care Team Description 09/12/2024 Telephone [facility] ([facility]) [address] [place] [address] Linda Partida RN Test Results (Right breast biopsy 09/11/24) 09/11/2024 2:05 PM CDT - 09/11/2024 11:59 PM CDT Hospital Encounter [facility] ([facility]) [address] [place] [address] Abnormal mammogram Discharge Disposition: Discharge to home or self care 09/11/2024 12:47 PM CDT - 09/11/2024 11:59 PM CDT Hospital Encounter [facility] ([facility]) [address] [place] [address] Abnormal mammogram Discharge Disposition: Discharge to home or self care 08/27/2024 7:46 AM CDT - 08/27/2024 11:59 PM CDT Hospital Encounter [facility] ([facility]) [address] [place] [address] Abnormal mammogram Discharge Disposition: Discharge to home or self care 08/22/[address] [phone] Referral, Self Appointment Request 08/20/2024 1:19 PM CDT - 08/20/2024 11:59 PM CDT Hospital Encounter [facility] ([facility]) [address] [place] [address] Screening mammogram, encounter for Discharge Disposition: Discharge to home or self care from Last 3 Months Surgical History Surgery Date Site/Laterality Comments US GUIDED BIOPSY LIVER 08/02/2024 N/A BREAST BIOPSY 09/11/2024 Right Social History Tobacco Use Types Packs/Day Years [...] on file 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 Gender Identity Not on file Sexual Orientation Not on file Obstetrics History Last Filed Vital Signs Vital Sign Reading [...] 08/02/2024 11:44 AM CDT Plan of Treatment Health Maintenance Due Date Last Done Comments Cervical Cancer Screening 1960 Colon Cancer Screening-Colonoscopy 1960 Depression Screening 1960 Fall Risk Assessment 1960 Hepatitis C Screening 1960 Osteoporosis Screening-Bone Density Scan 1960 DTaP/Tdap/Td Vaccine (1 - Tdap) 10/17/1970 Hepatitis B Screening 10/17/1977 Pneumococcal vaccine 65+ (1 of 1 - PCV) 10/17/2009 Zoster Vaccine (1 of 2) 10/17/2009 Covid-19 Vaccine (3 - 2023-2 5 season) 2023 08/04/2020, 07/12/2020 Well Visit 65+ 10/17/2024 Influenza Vaccine (#1) 2024 02/11/2021, 2019 Breast Cancer Screening-Mammogram 08/27/2025 08/27/2024, 08/20/2024, 08/01/2023, Additional history exists Medical Devices Implanted Type Area Bilingual Sales Consultant Device Identifier Shelf Expiration Date Model / Serial / Lot Hologic [facility] Marker Biospy Site Mini Cork Shape Deployment Device Titanium [employer] Eviva 13cm [id number]-26 - [id number] Implanted:Qty: 1 on 09/11/2024 at [facility] [employer] [facility] [id number] 03/21/2025 SMARK-EVIV A-13 / / [id number] Procedures Procedure Name Priority Date/Time Associated Diagnosis [...] be discussed with the patient by [facility] or referring provider staff and will [...] procedure. Dr. Vinod Krueger (diagnostic vice president underwriting) also participated in this examination. us [place] [...] will be discussed with the patient by [facility] or referring provider staff and will be [...] are included within the tissue cores. A TwonesurSeatwave Mini Cork tissue marker clip was placed [...] procedure. Dr. Vinod Krueger (diagnostic vice president underwriting) also participated in this examination. France Allan MD IMG MAMMO PROCEDURES Dameon julio cesar Result - Final * Surgical pathology (09/11/2024 2:04 PM CDT) Tissue (Breast biopsy, needle core) 09/11/2024 2:04 PM CDT Comment:RIGHT Stereo Guided Breast Biopsy - Lower Central - Calcs - CAT 4A Narrative PATHOLOGY [facility] - 09/12/2024 12:02 PM CDT EPIC results best viewed via link to PDF [facility] [place] [address] Note to Patients: This report may contain [...] Gender: F : 1960 (Age: 63) Address: [address] [place], [place] [address] Hospital #: [id number] Taken:09/11/2024 Received:09/11/2024 Reported: 09/12/2024 Patient Type: [facility] Ancillary Service: UNKNOWN Location: Physician(s): France Allan M.D. Diagnosis: Breast, right, lower central, core biopsy - Calcifications associated with fibrocystic changes and benign lobules - No evidence of atypia or malignancy [facility]/09/12/2024 09:35 By this signature, I attest that [...] Surgical Pathology and Flow Cytometry Departments at [facility] as part of an ongoing quality control tech raw materials program and in compliance with federally mandated [...] Surgical Pathology and Flow Cytometry Departments of [facility]. It has not been cleared or approved by the U. S. Food and Drug Administration. IMAGES AND SCANNED DOCUMENTS, IF INCLUDED, ONLY VIEWABLE IN PDF VERSION OF REPORT us France Allan MD LAB PATHOLOGY ORDERABLES Final Result PATHOLOGY [facility] [address] [place], [place] [phone] * Diagnostic Mammogram Bilateral W Levar (08/27/2024 [...] compared to prior imaging studies performed at [facility] on 02/08/2020, 05/18/2021, 06/17/2022 and 08/01/2023. There [...] compared to prior imaging studies performed at [facility] on 02/08/2020, 05/18/2021,06/17/2022 and 08/01/2023. There are [...] nal Result from Last 3 Months Insurance [employer] [place] Advance Directives For more information, please contact: [phone] * Full Code (Latest Code Status on File) Date Activated Date Inactivated Comments 08/02/2024 11:40 AM 08/03/2024 5:06 AM Care Teams Hotel Front Desk Agent Relationship Specialty Start Date End Date France Allan MD PCP - General 04/10/17
== END 2024-11-02 07:16 | disposition home or self-care (01) ==
PROVIDERS: PCP Family Medicine; Visit Provider Nurse Practitioner Family
DX: K74.69 Other cirrhosis of liver (principal)
CPT/HCPCS: 76705